=== PATIENT | female | born 1955 | race Caucasian/White ===

== ENCOUNTER 2021-02-15 08:10 | Emergency (ER) | payer MEDICARE, SELFPAY ==
--- NOTE | ~2021-02-15 | CT_ITS ---
EXAMINATION: CT abdomen pelvis wo con DATE: 02/15/2021 11:46 INDICATION: Left flank pain. TECHNIQUE: Computed tomography (CT) of the abdomen and pelvis was performed without intravenous contr ast. Automated exposure control and iterative reconstruction technique were employed. The dose-length product was 335.88 mGy-cm. COMPARISON: Chest CT 07/28/2017 FINDINGS: The visualized portions of the lung bases demonstrates perilymphatic nodules involving all lobes. There is chronic airspace opacities in the perihilar regions with air bronchograms. No pleural effusion. The heart size is normal. There are coronary artery calcifications. No pericardial effusio n. Calcified left hilar lymph nodes are consistent with old granulomatous disease. There are bilatera l breast implants with intracapsular ruptures. The liver, gallbladder, spleen, pancreas, and adrenal glands are normal. There is a small parenchymal calcification in right kidney. There is a 10 mm cyst in left kidney. There is diverticulosis of the colon without evidence of diverticulitis. There are no dilated loops of bowel. The appendix is normal. There are no pathologically enlarged lymph nodes. Th ere is no free intraperitoneal fluid. There are foci of subcutaneous gas in left flank. There is mode rate thoracic spondylosis and mild lumbar spondylosis. IMPRESSION: 1. Foci of subcutaneous gas in left flank, most likely from injection or other trauma. 2. Diffuse lung disease similar to the prior exam, most likely sarcoid. Reviewed, dictated and finalized at location A. T BAND SEPARATOR
--- NOTE | ~2021-02-15 | XR_ITS ---
EXAMINATION: XR ribs LT 2V w CXR 2V DATE: 02/15/2021 11:29 INDICATION: Left flank pain. TECHNIQUE: Frontal and lateral views of the chest and 2 views on 3 radiographs of the left ribs were obtained. COMPARISON: Chest 2 views 07/19/2017, 01/03/2011, chest CT 07/28/2017 FINDINGS: CHEST TWO VIEWS: There is chronic mild elevation of right hemidiaphragm. There are chronic airspace o pacities in all lung zones bilaterally with a perihilar predominance. No pleural effusion or pneumoth orax. The heart size is normal. Breast implants are noted. LEFT RIBS: There is no rib fracture. IMPRESSION: 1. No rib fracture. 2. Stable diffuse lung disease, most likely sarcoid. Reviewed, dictated and finalized at location A. LESOFT FINANCIAL DEVELOPER
[2021-02-15 08:21] VITALS: BP 140/77; PULSE 95; RESP 18; TEMP 36.6; O2SAT 100
--- NOTE | 2021-02-15 11:03 | ED.ABDPAIN ---
HPI - Abdominal Pain General Chief Complaint: Abdominal Pain Stated Complaint: Possible Kidney Stone Time Seen by Provider: 02/15/21 10:51 Source: patient Mode of arrival: ambulatory Limitations: no limitations History of Present Illness HPI narrative: This is a 65-year-old female that presents to the emergency department for left-sided flank pain present over the last couple of weeks. No known injury or trauma. Patient saw her primary for this, who tried to order a CT scan to rule out kidney stone. She was instructed to present to the emergency department for any worsening pain. Reports the pain has been constant. It is worse with movement. She does report sometimes the pain radiates into her abdomen. She has had some urinary frequency. She did take a muscle relaxer this morning with some relief. Denies fever, vomiting, dysuria, or hematuria. Related Data Allergies Allergy/AdvReac Type Severity Reaction Status Date / Time No Known Allergies Allergy Mild Verified 02/14/21 08:45 Review of Systems Review of Systems: CONSTITUTIONAL: Denies fever GASTROINTESTINAL: Reports abdominal pain. Denies nausea, vomiting GENITOURINARY: Denies dysuria or hematuria. SKIN: Denies rash MUSCULOSKELETAL: Reports back pain, joint pain, and myalgia. All systems reviewed & are unremarkable except as noted in HPI and below PMFSH Past Medical History Medical History Colon cancer screening History of one miscarriage History of vaginal delivery x 4 HTN (hypertension) Hx of sarcoidosis Surgical History Surgical History History of breast augmentation History of dilation and curettage History of endometrial ablation Family History Family History Father Diabetes mellitus Hypertension Heart disease Mother Bladder cancer Sibling Bone cancer Hypertension Heart disease Social History Social History Smoking status: Never smoker Second hand tobacco smoke exposure: No Alcohol intake: current Substance use: never Gender identity (if verbalized by the patient): Female Sexual Orientation (if Verbalized by the Patient): Straight or Heterosexual Agree to blood products: Yes Exam Narrative: GENERAL: Well-appearing, well-nourished, and in no acute distress. HEAD: Normocephalic, atraumatic. EYES: EOMI. CHEST: Clear to auscultation. No respiratory distress. No wheezes rales or rhonchi HEART: Regular rate and rhythm. No murmur heard. Normal peripheral pulses. ABDOMEN: Soft, nontender, nondistended, normal active bowel sounds. No CVA tenderness BACK: No midline spinal tenderness. There is mild bruising noted to the left flank area EXTREMITIES: Normal range of motion. No edema. SKIN: Warm, dry, no rash. NEURO: No focal deficits. Alert and oriented x3. PSYCH: Normal mood and affect Course Vital Signs Vital signs: Vital Signs Temperature 97.8 F 02/15/21 08:21 Pulse Rate 95 02/15/21 08:21 Respiratory Rate 18 02/15/21 08:21 Blood Pressure 140/77 02/15/21 08:21 Pulse Oximetry 100 02/15/21 08:21 Temperature 97.8 F 02/15/21 08:21 Pulse Rate 95 02/15/21 08:21 Respiratory Rate 18 02/15/21 08:21 Blood Pressure 140/77 02/15/21 08:21 Pulse Oximetry 100 02/15/21 08:21 MDM - Abdominal Pain MDM Narrative Medical decision making narrative: Patient presents to the ER for left sided flank pain present over the last couple of weeks. No recent injury or trauma. Her vitals are stable. She is afebrile and nontoxic-appearing. CBC metabolic panel without concerning findings. Lipase is normal. UA without evidence of infection. Left rib/chest x-ray shows stable diffuse lung disease consistent with her known diagnosis of sarcoidosis. CT scan of the abdomen and pelvis shows a
[2021-02-15 11:14] LABS: Basophils Absolute Auto 0.1 K/mm3 (0.0-0.1); Basophils Percent Auto 1.4 % (0.2-1.2); Eosinophils Absolute Auto 0.4 K/mm3 (0-0.3); Eosinophils Percent Auto 8.7 % (0-4.4); Hematocrit 44.8 % (37.0-47.0); Hemoglobin 14.6 g/dL (12.0-15.0); Immature Granulocyte Absolute 0.01 K/mm3 (0.00-0.031); Immature Granulocyte Percent A 0.2 % (0-0.5); Lymphocytes Absolute Auto 1.59 K/mm3 (0.9-3.2); Lymphocytes Percent Auto 32.1 % (18.3-44.2); Mean Corpuscular HGB Conc 32.6 g/dl (32-36); Mean Corpuscular Hemoglobin 31.8 pg (26-34); Mean Corpuscular Volume 97.6 fl (80-100); Mean Platelet Volume 9.2 fl (7.4-10.4); Monocytes Absolute Auto 0.4 K/mm3 (0.1-0.6); Monocytes Percent Auto 8.9 % (2.6-8.5); Neutrophils Absolute Auto 2.4 K/mm3 (1.3-6.7); Neutrophils Percent Auto 48.7 % (45.5-73.1); Platelet Count Result 281 k/mm3 (150-375); Red Blood Count 4.59 M/mm3 (4.2-5.4); Red Cell Distribution Width 13.2 % (11.5-14.5)
[2021-02-15 11:19] LABS: Add Urine Microscopic? YES; Appearance Urine Clear (Clear); Bacteria Urine Trace /hpf; Bilirubin Urine Negative (Negative); Blood Urine 1+ (Negative); Color Urine Colorless (Yellow); Glucose Urine UA Negative (Negative); Ketones Urine Negative (Negative); Leukocyte Esterase Ur Negative LEU/UL (Negative); Nitrate Urine Negative (Negative); Protein Urine Negative (Negative); RBC Urine 0-2 /hpf (0-2); Urobilinogen Urine Negative mg/dL (<2.0); WBC Urine 0-3 /hpf
[2021-02-15 11:20] LABS: Specific Grav Ur 1.003 (1.001-1.035)
[2021-02-15 11:27] LABS: Alanine Aminotransferase 26 U/L (4-35); Albumin Level 4.6 g/dL (3.5-5.1); Alkaline Phosphatase 125 U/L (38-126); Anion Gap 8 mmol/L (8-16); Aspartate Amino Transferase 32 U/L (14-36); Bilirubin,Total 0.6 mg/dL (0.2-1.3); Blood Urea Nitrogen 19 mg/dL (7-17); Calcium 9.7 mg/dL (8.4-10.2); Carbon Dioxide 29 mmol/L (22-30); Chloride 101 mmol/L (98-107); Estimated CRCL calculation 59 ml/min; Estimated Glomerular Filt Rate > 60; Glucose 92 mg/dL (65-110); Lipase 115 U/L (23-300); Potassium 4.1 mmol/L (3.4-5.0); Sodium 138 mmol/L (137-145)
[2021-02-15 12:46] LABS: Creatine Kinase 54 U/L (30-135)
[2021-02-15 13:40] VITALS: BP 135/68; PULSE 90; RESP 18; O2SAT 100
== END 2021-02-15 13:41 | disposition home or self-care (01) ==
PROVIDERS: Physician Assistant; Emergency Provider Emergency Medicine; PCP Internal Medicine
DX: M54.6 Pain in thoracic spine (principal); I10 Essential (primary) hypertension
CPT/HCPCS: 36415; 71046; 71100; 74176; 80053; 81001; 82550; 83690; 85025; 99284

== ENCOUNTER → 2021-04-19 07:52 | Outpatient (CLI) | payer MEDICARE, SELFPAY ==
--- NOTE | ~2021-04-19 | MM_ITS ---
EXAMINATION: MM scrn bia implant BI w jean HISTORY: Screening mammogram TECHNIQUE: Craniocaudal and mediolateral oblique 3-D tomosynthesis images with implant displacement a nd synthetic 2-D images were generated. Craniocaudal and mediolateral oblique views of the breasts wi thout implant displacement were obtained using full field digital mammography. CAD analysis was submi tted and interpreted. COMPARISON: 01/28/2016 bilateral implant screening mammogram BREAST PARENCHYMAL COMPOSITION: There are scattered areas of fibroglandular density. FINDINGS: Status post bilateral augmentation mammoplasty. There is extravasated silicone in the lower aspect of the implant on the left, stable in appearance s jesse 01/28/2016. There is no evidence of suspicious mass, calcification, or architectural distortion to suggest malignancy in either breast. There has been no suspicious interval change. IMPRESSION: 1. No mammographic evidence of malignancy. 2. Recommend routine screening mammography in one year. BI-RADS Category 2: Benign finding(s). Reviewed, dictated and finalized at location A. TANK ASSEMBLER
== END ==
PROVIDERS: PCP Internal Medicine; Visit Provider Nurse Practitioner
DX: Z12.31 Encounter for screening mammogram for malignant neoplasm of breast (principal)
CPT/HCPCS: 77063; 77067

== ENCOUNTER → 2021-04-22 11:44 | Outpatient (CLI) | payer MEDICARE, SELFPAY ==
--- NOTE | ~2021-04-22 | DEXA_ITS ---
Bone Density Report Name: FORTINO ESTRADA Age: 65 Sex: Female Ethnicity: White Date of : 1955 Indication: osteopenia; postmenopausal Referring Provider: Ruben, Nany Study: Bone densitometry was performed. Exam Date: April 22, 2021 Accession number: [id number] Bone Density: Region BMD T-score Z-score Classification AP Spine (L1-L4) 0.830 -2.0 -0.1 Osteopenia Femoral Neck (Left) 0.744 -0.9 0.7 Normal Total Hip (Left) 0.835 -0.9 0.4 Normal Femoral Neck (Right) 0.713 -1.2 0.4 Osteopenia Total Hip (Right) 0.859 -0.7 0.6 Normal Total Hip Mean 0.847 -0.8 0.5 Normal World Health Organization criteria for BMD impression classify patients as: Normal (T-score at or above -1.0), Osteopenia (T-score between -1.0 and -2.5), or Osteoporosis (T-score at or below -2.5). 10-year Fracture Risk(1): Major Osteoporotic Fracture 8.7% Hip Fracture 0.8% Reported Risk Factors: [place] (), Neck BMD=0.713, BMI=27.7 (1) FRAX(R) Version 3.08. Fracture probability calculated for an untreated patient. Fracture probability may be lower if the patient has received treatment. Previous Exams: Region Exam Age BMD T-score BMD Change BMD Change Date g/cm2 vs Baseline vs Previous AP Spine(L1-L4) 04/22/2021 65 0.830 -2.0 0.038* 0.038* 01/14/2016 60 0.793 -2.3 Total Hip(Left) 04/22/2021 65 0.835 -0.9 -0.061* -0.061* 01/14/2016 60 0.896 -0.4 Total Hip(Right) 04/22/2021 65 0.859 -0.7 -0.041* -0.041* 01/14/2016 60 0.900 -0.3 *Denotes significance at 95% confidence level, LSC for AP Spine = 0.022 g/cm2, LSC for Total Hip = 0.027 g/cm2 Clinical Information Provided by Patient: Has used the following medications: Vitamin D Patient maximum height was 63.5 Menopause Age: 57 Does not regularly consume dairy products Drinks caffeinated beverages Onset of menses at age 14 Number of children 4 Impression: The patient has low bone mass, based on the Total Spine T-score. The patient has an estimated ten-year risk of hip fracture of 0.8% and an estimated ten-year risk of major fracture of 8.7%, based on the WHO FRAX algorithm. The BMD for the Total Hip(Left) decreased, changing by -0.061 since the last DXA exam. The BMD for the Total Hip(Right) decreased, changing by -0.041 since the last DXA exam. Discussion: BONE DENSITY IS LOW AT ONE OR MORE SKELETAL SITES. This patient's lowest
== END ==
PROVIDERS: Visit Provider Nurse Practitioner
DX: Z78.0 Asymptomatic menopausal state (principal); Z13.820 Encounter for screening for osteoporosis; M85.88 Other specified disorders of bone density and structure, other site; M85.851 Other specified disorders of bone density and structure, right thigh
CPT/HCPCS: 77080

== ENCOUNTER 2022-06-16 10:50 | Outpatient (CLI) | payer MEDICARE, SELFPAY ==
--- NOTE | 2022-06-19 12:27 | WPDHOLTEREM ---
Holter/Event Monitor Holter/Event Monitor Date of procedure: 06/16/22 Holter/Event Procedure: 48 Hr Holter Monitor Indications: Palpitations Conclusion: 1. 48 hour holter monitor on 06/16/22. 2. Underlying rhythm is sinus rhythm. HR range 54-143 bpm; average HR 82 bpm. 3. There are 21 premature supraventricular complexes. No supraventricular tachycardia. 4. There are 1,849 premature ventricular complexes. No ventricular tachycardia. 5. No sinoatrial or atrioventricular blocks. No significant pauses greater than 2 seconds. 6. No symptoms available for correlation.
== END 2022-06-16 10:51 | disposition home or self-care (01) ==
PROVIDERS: PCP Internal Medicine; Visit Provider Internal Medicine
DX: R00.2 Palpitations (principal)
CPT/HCPCS: 93225; 93226

== ENCOUNTER 2022-06-25 08:40 | Outpatient (CLI) | payer MEDICARE, SELFPAY ==
--- NOTE | 2022-06-25 08:50 | ECHO_ITS ---
Patient Info Name: Farzaneh Ennis Age: 67 years : 1955 Gender: Female Ht: 63 in Wt: 148 lbs BSA: 1.74 m2 HR: 70 bpm BP: 107 / 75 mmHg Heart Rhythm: Sinus Rhythm Technical Quality: Good Exam Date: 06/25/2022 9:01 AM Exam Location: [facility] Patient Status: Outpatient Admit Date: 06/25/2022 Staff Ordering Physician: Negro Olvera DO Gusset Maker: Keeley North RDCS Attending Provider: Negro Olvera DO Referring Physician: May LOCK; Exam Type: CA echo doppler color flow Study Info Indications R00.2 - Palpitations Complete two-dimensional, color flow and Doppler transthoracic echocardiogram is performed. Summary 1. Complete two-dimensional, color flow and Doppler transthoracic echocardiogram is performed. 2. Left ventricular chamber dimension is normal. 3. Left ventricular systolic function is normal, estimated at 60-65%. 4. The left ventricular diastolic function is grade I diastolic dysfunction. 5. E/e' 9 is minimally elevated. 6. The mitral valve has mildly calcified annulus. 7. There is trace tricuspid valve regurgitation. 8. No pulmonary hypertension, estimated pulmonary arterial systolic pressure is 20 mmHg. 9. There is trace pulmonic regurgitation. Left Ventricle E/e' 9 is minimally elevated. Left ventricular chamber dimension is normal. Left ventricular systolic function is normal, estimated at 60-65%. The left ventricular diastolic function is grade I diastolic dysfunction. Right Ventricle Right ventricular chamber dimension is normal. Right ventricular systolic function is normal. Left Atria Left atrial chamber dimension is normal. Right Atria Right atrial chamber dimension is normal. Aortic Valve The aortic valve is trileaflet. There is no aortic valve stenosis. There is no aortic valve regurgitation. Pulmonic Valve There is trace pulmonic regurgitation. Mitral Valve The mitral valve has mildly calcified annulus. There is no mitral valve stenosis. There is no mitral valve regurgitation. Tricuspid Valve There is trace tricuspid valve regurgitation. No pulmonary hypertension, estimated pulmonary arterial systolic pressure is 20 mmHg. Pericardium/Pleural There is no pericardial effusion. Inferior Vena Cava Normal inferior vena cava with >50% collapse upon inspiration consistent with normal right atrial pressure, 5 mmHg. Aorta The aortic root size at the sinus of Valsalva is normal. Left Ventricular Outflow Tract Name Value Normal LVOT 2D LVOT Diameter 1.8 cm LVOT Doppler LVOT Peak Gradient 3 mmHg LVOT Mean Gradient 1 mmHg LVOT VTI 19 cm LVOT VTI/AV VTI Ratio 0.8 LVOT Stroke Volume 52 ml LVOT CO 2.8 l/min LVOT CI 1.6 l/min/m2 Pulmonic Valve Name Value Normal RVOT Doppler
== END 2022-06-25 08:41 | disposition home or self-care (01) ==
PROVIDERS: PCP Internal Medicine; Visit Provider Internal Medicine
DX: R00.2 Palpitations (principal); I34.81 Nonrheumatic mitral (valve) annulus calcification; I51.89 Other ill-defined heart diseases
CPT/HCPCS: 93306

== ENCOUNTER 2023-10-15 10:23 | Outpatient (CLI) | payer MEDICARE, SELFPAY ==
--- NOTE | ~2023-10-15 | DEXA_ITS ---
Bone Density Report Name: FORTINO ESTRADA Age: 68 Sex: Female Ethnicity: White Date of : 1955 Indication: postmenopausal; screening for osteoporosis; height loss; Referring Provider: PATRICK, MISSY Study: Bone densitometry was performed. Exam Date: October 15, 2023 Accession number: [id number] Bone Density: Region BMD T-score Z-score Classification AP Spine(L1-L4) 0.780 -2.4 -0.4 Osteopenia Femoral Neck (Left) 0.671 -1.6 0.2 Osteopenia Total Hip (Left) 0.816 -1.0 0.4 Normal Femoral Neck (Right) 0.682 -1.5 0.3 Osteopenia Total Hip (Right) 0.908 -0.3 1.2 Normal Total Hip Mean 0.862 -0.7 0.8 Normal World Health Organization criteria for BMD impression classify patients as: Normal (T-score at or above -1.0), Osteopenia (T-score between -1.0 and -2.5), or Osteoporosis (T-score at or below -2.5). 10-year Fracture Risk(1): Major Osteoporotic Fracture 10% Hip Fracture 1.5% Reported Risk Factors: [place] (), Neck BMD=0.671, BMI=25.7 (1) FRAX(R) Version 3.08. Fracture probability calculated for an untreated patient. Fracture probability may be lower if the patient has received treatment. Clinical Information Provided by Patient: Patient maximum height was 64 Does not regularly consume dairy products Drinks caffeinated beverages Onset of menses at age 14 Number of children 4 Impression: The patient has low bone mass, based on the Total Spine T-score. The patient has an estimated ten-year risk of hip fracture of 1.5% and an estimated ten-year risk of major fracture of 10%, based on the WHO FRAX algorithm. Discussion: BONE DENSITY IS LOW AT ONE OR MORE SKELETAL SITES. This patient's lowest T-score is low at one or more skeletal sites. It meets the World Health Organization's (WHO) criteria for ?low bone mass? (T-score between -1.0 and -2.5). The patient's 10-year risk of fracture as calculated by FRAX is less than the threshold where pharmacological therapy is recommended by the National Osteoporosis Foundation (NOF). However, all treatment decisions require clinical judgment and consideration of individual patient factors, including patient preferences, comorbidities, previous drug use, risk factors not captured in the FRAX model (e.g., frailty, falls, vitamin D deficiency, increased bone turnover, interval significant decline in bone density) and possible under or overestimation of fracture risk by FRAX. The patient should follow a healthful lifestyle (good nutrition with adequate calcium and vitamin D, and appropriate weight-bearing exercise). Follow-Up: Consider repeating this study in 2 to 3 years to reassess this patient's status, or sooner if there is some new clinical indication. Reported by: ARI on 10/15/2023 11:04:00 AM.
== END 2023-10-15 10:24 | disposition home or self-care (01) ==
PROVIDERS: PCP Internal Medicine; Visit Provider Nurse Practitioner
DX: M85.89 Other specified disorders of bone density and structure, multiple sites (principal); Z13.820 Encounter for screening for osteoporosis
CPT/HCPCS: 77080

== ENCOUNTER 2023-10-20 08:28 | Outpatient (CLI) | payer OTHER, SELFPAY ==
--- NOTE | 2023-10-20 08:41 | ECG_ITS ---
Test Date: 2023-10-20 08:55:58 Measurements Intervals Anderson Rate: 82 P: 27 FL: 177 QRS: -24 QRSD: 92 T: 47 QT: 354 QTc: 415 Interpretive Statements SINUS RHYTHM MINIMAL VOLTAGE CRITERIA FOR LVH, CONSIDER NORMAL VARIANT [MEETS CRITERIA IN ONE OF: R(aVL), S(V1), R(V5), R(V5/V6)+S(V1)] POSSIBLE ANTERIOR MYOCARDIAL INFARCTION [30 ms Q WAVE IN V3/V4, OR R < 0.2 mV IN V4], OF INDETERMINATE AGE WARNING: DATA QUALITY MAY AFFECT INTERPRETATION No previous ECG available for comparison Electronically Signed On 10-20-2023 16:17:35 CDT by Emily Ibarra M.D.
[2023-10-20 09:18] LABS: Anion Gap 13 mmol/L (4-12); Blood Urea Nitrogen 13 mg/dL (7-17); Calcium 9.6 mg/dL (8.4-10.2); Carbon Dioxide 24 mmol/L (22-30); Chloride 101 mmol/L (98-107); Estimated Glomerular Filt Rate > 60; Glucose 102 mg/dL (65-110); Potassium 4.3 mmol/L (3.4-5.0); Sodium 138 mmol/L (137-145)
== END 2023-10-20 08:29 | disposition home or self-care (01) ==
PROVIDERS: Anesthesiology; PCP Internal Medicine; Visit Provider Surgery Plastic and Reconstructive Surgery
DX: I10 Essential (primary) hypertension (principal); Z79.899 Other long term (current) drug therapy; Z01.818 Encounter for other preprocedural examination
CPT/HCPCS: 36415; 80048; 93005

== ENCOUNTER 2023-10-22 00:39 | Day surgery (SDC) | payer OTHER, SELFPAY ==
[2023-10-19 09:57] VITALS: BMI 25.0
--- NOTE | 2023-10-19 10:21 | PC.NURSE ---
Report to the Outpatient Waiting Room, entrance under the green pavilion located off [facility], at time __0800am on date ____10/22/23___. Planned Procedure Time: ___1000am . Time changes happen often and if your time is changed the preop area will call you the afternoon before. - You and your visitor will be asked to self-screen and do not enter if you have any COVID symptoms. - A mask is optional within the hospital at this time. Patients may have clear liquids (water, carbonated beverages, clear teas, apple juice) until 3 hours prior to surgery (0700am) with a maximum of 20 ounces. - No food from midnight until time of surgery Take the following medications with a SIP of water the morning of surgery: __None DO NOT STOP ANY OF YOUR OTHER PRESCRIPTION MEDICATIONS PRIOR TO SURGERY ?EXCEPT THE FOLLOWING Medications to discontinue per physician None Date to take last dose n/a Please no make-up, nail hong konger, hairspray, perfume, deodorant, or body powder the day of surgery. No jewelry (including any body piercings) or valuables the day of surgery, leave them at home. Please take a shower or bath the night before, or the morning of, surgery with an antibacterial soap. Wear comfortable, loose fitting clothing. Children are encouraged to wear pajamas. - Jewelry must be removed prior to entering the operating room. Rings and piercings that are not removed may be cut off. - The hospital will not accept responsibility for valuables. - Please leave all valuables, including medications, at home the day of surgery. If you are going home after surgery, a licensed mule driver must drive you home. - NO public transportation without another adult if you receive anesthesia. - We recommend that an adult stay with you for 24 hours following discharge. - We also recommend that you do not drive, make important decision, drink alcoholic beverages, or take any drugs that were not prescribed by your health care provider for at least 24 hours after your discharge time. Follow any additional instructions given to you from your surgeon. If you or anyone in your household have experienced Covid symptoms in the past week, please notify your surgeon or the nurse liaison at the phone number below for possible testing. Telephone instructions given to __patient and asked if any additional questions and then verbalized understanding. Patient advised to call surgeon office or pre surgery nurse liaison [phone] if any additional questions.
[2023-10-22] VITALS (8 sets, daily range): BP systolic 134–150; BP diastolic 75–91; PULSE 84–87; RESP 14–16; TEMP 36.1–36.7; O2SAT 98–100; BMI 25.4
--- NOTE | 2023-10-22 09:25 | WPDHPUPDATE1 ---
History and Physical Update Update Date/Time: 10/22/23 09:25 History and Physical has been reviewed, including an updated exam of the patient. There are NO changes in the patient's condition. Risks, benefits, and alternatives have been discussed and questions answered. Patient agrees to proceed with procedure.
[2023-10-22 09:35] LABS: Urine Cotinine NEGATIVE
[2023-10-22] MEDS: LACTATED RINGERS 1,000 ML 30 ML IV CONT ×2 (09:45→12:35)
--- NOTE | 2023-10-22 09:45 | P.OP_ITS ---
Procedure Note - Detailed Date of Procedure 10/22/23 Pre-op Diagnosis hx breast augmentation Post-op Diagnosis Same Procedure Performed Bilateral breast implant removal Bilateral breast mastopexy Surgeon Reymundo Huang MD Anesthesia General Findings Inverted T Superior pedicel Previous implant: Bilateral ruptured smooth silicone. Left capsule with significant thickening. Description of Procedure She is here today for bilateral breast implant removal with mastopexy. Previously and again today the risks, benefits, alternatives were discussed in extensive detail. I wanted her to be very realistic about the risks involved as well as expectations. We discussed aftercare and what to monitor for. Made sure answered all of her questions to her satisfaction today and consent was obtained. Marked in the preoperative holding area with their verification. The patient was taken to the operating room placed supine on the operating table. Anesthesia was provided by anesthesiology. A surgical time-out was taken. She was prepped and draped in a standard sterile fashion. 11 blade used to make a stab incision and the lateral breast was infiltrated with a tumescent solution (avoiding central breast). Tegaderm nipple Duncan were placed. A 15 blade used to make an incision at the previous IMF scar. Dissection was continued until the previous implant was identified and removed with capsulotomy. Capsules sent to pathology. Findings as above. I then copiously irrigated with saline solution on TUR tubing and verified a strict hemostasis. I tailor tacked the breast into position. Placed her in a sitting position. Suction lipectomy was completed laterally with a 3mm Jackie cannula based on preoperative planning, intraoperative observation, and rolling pinch test. I elevated medial and lateral tissue flaps as well for planned closure. I closed along the IMF with 2-0 Stratafix. Along the vertical with 2-0 PDS. 3- 0 Monocryl along the vertical and around the areola. 3-0 Stratafix along the IMF. I finally closed everything with running subcuticular 4-0 Monocryl and tissue glue. Fluffs and surgical bra were placed. Estimated Blood Loss 75 Drains No Packing No Pathology Yes (Bilateral breast capsules) Complications No immediate complications Condition Stable Disposition PACU
--- NOTE | 2023-10-22 09:51 | P.PNAN_ITS ---
Anes - Initial Pre Proc Eval Procedure: Operation Date: 10/22/23 11:00 Proposed Procedures p Bilateral Breast Implant Removal - Reymundo Huang MD s Bilateral Breast Mastopexy - Reymundo Huang MD Date/Time: 10/22/23 09:51 Surgeon: Reymundo Huang MD Pre Op Diagnosis: hx breast augmentation Patient Data Age: 68 Gender: F Height: 1.6 m Weight: 64 kg Allergies Allergy/AdvReac Type Severity Reaction Status Date / Time No Known Allergies Allergy Mild Verified 10/19/23 09:55 Home Medications Medication Instructions Recorded Confirmed Type lisinopril 20 1 tablet PO DAILY #90 tabs 04/26/23 10/19/23 Rx mg-hydrochlorothiazide 12.5 mg tablet Laboratory Tests 10/22/23 09:13 Cotinine Negative Patient hx anesthesia problems: none Family hx anesthesia problems: none Results Review: All pre-operative results and documents have been reviewed as part of the pre- operative evaluation. [facility] Past Medical History Medical History (Updated 06/14/23 @ 13:57 by Joseph Garcia DO) Colon cancer screening Hemorrhoidal skin tags History of one miscarriage History of vaginal delivery x 4 HTN (hypertension) Hx of sarcoidosis Surgical History Surgical History History of breast augmentation History of dilation and curettage History of endometrial ablation Family History Family History Father Diabetes mellitus Hypertension Heart disease Mother Bladder cancer Sibling Bone cancer Hypertension Heart disease Social History Social History Smoking status: Never smoker Second hand tobacco smoke exposure: No Alcohol intake: current Drinks per week: 1 Substance use: never Lack of Transportation: No Lack of Food: Never True Current Housing: I Have Housing Concerned About Future Housing: No Difficulty Paying Gas/Electric Bills: No Difficulty Paying for Meds: No Currently Unemployed: No Education: Trade/Vocational Certificate Difficulty w/ Childcare or Family Care: No Living arrangements: with family Additional living arrangements comments: and son Gender identity (if verbalized by the patient): Female Sexual Orientation (if Verbalized by the Patient): Straight or Heterosexual Spiritual care concerns: No Agree to blood products: Yes Anes - Eval Final PreProcedure Day of Procedure 10/22/23 09:51 Patient weight: normal Heart: regular rate and rhythm Lungs: clear to auscultation Airway: Mallampati scale class II Neurological: alert and oriented Last oral intake: >/= 8 hours ASA classification: III Emergent: no Anesthetic plan: proceed Anesthesia type and monitoring: general ETT and standard monitoring Results Review: All pre-operative results and documents have been reviewed as part of the pre- operative evaluation. Informed Consent: The patient's anesthetic plan and its attendant risks and benefits were discussed with the patient/family/POA. Questions were solicited and answers provided to the satisfaction of the patient/family/POA.
[2023-10-22] MEDS: TRANEXAMIC ACID 1,000MG/ISO100 1,000 MG/100 ML BAG 200 MG IVPB (10:01)
[2023-10-22] MEDS: ceFAZolin 2 GM/D5W 50 ML 2 GM/50 ML BAG IVPB (10:18)
[2023-10-22] MEDS: LACTATED RINGERS IRRIG 1,000 ML, LIDOCAINE HCL 1% LOCAL INJ 50 ML, EPINEPHrine HCL INJ ... INFILTRATE (10:29)
--- NOTE | 2023-10-22 12:57 | SUR.PHASEI ---
1255: Simple mask removed.
[2023-10-22] MEDS: oxyCODONE HCL (*CRX) 5 MG TAB IR PO (13:26)
== END 2023-10-22 14:14 | disposition home or self-care (01) ==
PROVIDERS: PCP Internal Medicine; Visit Provider Surgery Plastic and Reconstructive Surgery
PROC: (CPT 19316; principal; 2023-10-22 11:00)
PROC: (CPT 19316; 2023-10-22 11:00)
DX: T85.43XA Leakage of breast prosthesis and implant, initial encounter (principal); N60.32 Fibrosclerosis of left breast; N60.31 Fibrosclerosis of right breast
CPT/HCPCS: 19316; 19371; 80307; 88304; A9270; J0171; J0690; J1100; J1170; J2250; J2371; J2405; J2704; J3010; J7120

== ENCOUNTER 2024-05-10 11:04 | Outpatient (CLI) | payer MEDICARE, SELFPAY ==
--- NOTE | ~2024-05-10 | US_ITS ---
EXAMINATION: US thyroid DATE: 05/10/2024 11:26 INDICATION: Nontoxic single thyroid nodule. TECHNIQUE: Multiple ultrasound images of the thyroid were obtained. COMPARISON: None. FINDINGS: The right thyroid lobe measures 5.6 x 2.1 x 2.0 cm. The left thyroid lobe measures 5.2 x 1.3 x 1.4 c m. In the left thyroid lobe, there is a 6 mm almost entirely cystic nodule (TI-RADS TR1). In the lef t thyroid lobe, there is a 3 mm and 2 mm nodules. In the right thyroid lobe, there is a 17 mm almost entirely cystic nodule (TR1). In the right thyroid lobe, there is a 7 mm mixed cystic and solid, hypo echoic, wider than tall nodule with smooth margin and punctate echogenic foci (TR4). IMPRESSION: 1. Thyroid nodules, likely not clinically significant. No follow-up is needed. Reviewed, dictated and finalized at location B.
== END 2024-05-10 11:05 | disposition home or self-care (01) ==
LOC: MICIMG 11:06
PROVIDERS: PCP Internal Medicine; Visit Provider Nurse Practitioner
DX: E04.2 Nontoxic multinodular goiter (principal)
CPT/HCPCS: 76536

== ENCOUNTER 2024-05-25 09:25 | Outpatient (CLI) | payer MEDICARE, SELFPAY ==
--- NOTE | ~2024-05-25 | US_ITS ---
EXAMINATION: US aorta DATE: 05/25/2024 15:33 CDT INDICATION: Family history of ischemic heart disease TECHNIQUE: Grayscale, color Doppler, and pulsed Doppler images of the aorta and common iliac arteries were obtained. COMPARISON: None. FINDINGS: The proximal aorta measures 2.3 cm greatest sagittal dimension. The mid aorta measures 1.7 cm greates t sagittal dimension. The distal aorta measures 1.5 cm greatest sagittal dimension. The right common internal iliac artery measures 1 cm. The left common iliac artery measures 1.1 cm. IMPRESSION: 1. Normal caliber aorta without aneurysm. Reviewed, dictated and finalized at location A.
--- OUTSIDE RECORDS SUMMARY | 2024-05-25 10:03 | XMS_ITS | Encounter Summary ---
Author Organization [facility] Address [address] [place] [address] Phone Care Team Providers Care Antenna Rigger Name Role Phone Negro Olvera MD Primary Care Provider [phone] Adam Leigh MD Unavailable [phone] Reymundo Huang MD Unavailable [phone] Reymundo Huang MD Unavailable [phone] Joseph Garcia DO Primary Care Provider [phone] Encounter Details Date Type Department Care Team (Latest Contact Info) Description 06/25/2022 Orders Only [facility] Scanning, Provider Social History Tobacco Use Types Packs/Day Years Used Date Smoking Tobacco: Never Smokeless Tobacco: Never Comments Unknown Sex and Gender Information Value Date Recorded Sex Assigned at Not on file Legal Sex Female 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 Gender Identity Female 07/30/2021 3:18 PM CDT Sexual Orientation Not on file documented as of this encounter Plan of Treatment Not on file documented as of this encounter Procedures Procedure Name Priority Date/Time Associated Diagnosis Comments CARDIOLOGY DOCUMENT SCAN 06/25/2022 documented in this encounter Results * CARDIOLOGY DOCUMENT SCAN (06/25/2022) Anatomical Region Laterality Modality Other us Provider Scanning [facility] CARDIAC SERVICES PROCEDURES Final Result documented in this encounter Visit Diagnoses Not on filedocumented in this encounter Care Teams Antenna Rigger Relationship Specialty Start Date End Date Negro Olvera MD [address] [place] [address] PCP - General Internal Medicine 08/13/17 02/03/24 Joseph Garcia DO [address] [place] [address] PCP - General Internal Medicine 02/04/24 Adam Leigh MD [address] [facility] DIV IM PULMONARY AND CCM, [address] [place] [address] Referring Physician Pulmonary Disease 04/02/23 Reymundo Huang MD [address] [place] [address] Referring Physician Plastic Surgery 09/28/23 09/28/23 Reymundo Huang MD [address] [place] [address] Referring Physician Plastic Surgery 09/28/23 documented as of this encounter
--- OUTSIDE RECORDS SUMMARY | 2024-05-25 10:03 | XMS_ITS | Encounter Summary ---
Author Organization [facility] Address [address] [place] [address] Phone Care Team Providers Care Marine Biologist Name Role Phone Negro Olvera MD Primary Care Provider [phone] Adam Leigh MD Unavailable [phone] Reymundo Huang MD Unavailable [phone] Reymundo Huang MD Unavailable [phone] Joseph Garcia DO Primary Care Provider [phone] Encounter Details Date Type Department Care Team (Latest Contact Info) Description 06/16/2022 Orders Only [facility] Scanning, Provider Social History Tobacco Use Types Packs/Day Years Used Date Smoking Tobacco: Never Smokeless Tobacco: Never Comments Unknown Sex and Gender Information Value Date Recorded Sex Assigned at Not on file Legal Sex Female 2:17 PM SEAL MIXER Gender Identity Female 07/30/2021 3:18 PM CDT Sexual Orientation Not on file documented as of this encounter Plan of Treatment Not on file documented as of this encounter Procedures Procedure Name Priority Date/Time Associated Diagnosis Comments CARDIOLOGY DOCUMENT SCAN 06/16/2022 documented in this encounter Results * CARDIOLOGY DOCUMENT SCAN (06/16/2022) Anatomical Region Laterality Modality Other us Provider Scanning CV CARDIAC SERVICES PROCEDURES Final Result documented in this encounter Visit Diagnoses Not on filedocumented in this encounter Care Teams Marine Biologist Relationship Specialty Start Date End Date Negro Olvera MD [address] [place] [address] PCP - General Internal Medicine 08/13/17 02/03/24 Joseph Garcia DO [address] [place] [address] PCP - General Internal Medicine 02/04/24 Adam Leigh MD [address] [facility] DIV IM PULMONARY AND CCM, [address] [place] [address] Referring Physician Pulmonary Disease 04/02/23 Reymundo Huang MD [address] [place] [address] Referring Physician Plastic Surgery 09/28/23 09/28/23 Reymundo Huang MD [address] [place] [address] Referring Physician Plastic Surgery 09/28/23 documented as of this encounter
--- OUTSIDE RECORDS SUMMARY | 2024-05-25 10:03 | XMS_ITS | Encounter Summary ---
Author Organization [facility] Address [address] [place] [address] Care Team Providers Care Band Scroll Saw Operator Name Role Phone Unavailable Primary Care Provider Unavailabl e Encounter Details Date Type Department Care Team (Late st Contact Info) Description 05/23/2024 External Device Data [facility] ABSTRACTION Provider, Abstract NO ADDRESS ON FILE Social History Tobacco Use Types Packs/Day Years Used Date Smoking Tobacco: Never Assessed Comments Unknown Sex and Gender Information Value Date Recorded Sex Assigned at Not on file Legal Sex Female 10:18 AM CDT Gender Identity Not on file Sexual Orientation Not on file documented as of this encounter Plan of Treatment Not on file documented as of this encounter Visit Diagnoses Not on filedocumented in this encounter
--- OUTSIDE RECORDS SUMMARY | 2024-05-25 10:03 | XMS_ITS | Clinical Summary ---
Author Organization [facility] Address [address] [place] [address] Care Team Providers Care Pecan Cleaner Name Role Phone Adam Leigh MD Unavailable [phone] Reymundo Huang MD Unavailable [phone] Joseph Garcia DO Primary Care Provider [phone] Allergies No known active allergies Medications lisinopril-hydro CHLOROthiazide (PRINZIDE,ZESTOR ETIC) 20-12.5 mg per tabletIndication s:hypertension 07/15/2017 Acti ve folic acid (FOLVITE) 1 mg tablet Take 1 tablet (1 mg total) by mouth daily 90 tablet 3 04/07/2023 Active Active Problems Problem Noted Date Diagnosed Date Sarcoidosis 04/02/2023 Shortness of breath 02/02/2023 Chest x-ray abnormality Family History Medical History Relation Name Comments Diabetes Father Cancer Mother Relation Name Status Comments Father Mother Social History Tobacco Use Types Packs/Day Years Used Date Smoking Tobacco: Never Smokeless Tobacco: Never Comments Unknown Sex and Gender Information Value Date Recorded Sex Assigned at Not on file Legal Sex Female 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 MACHINE OPERATOR Gender Identity Female 07/30/2021 3:18 PM CDT Sexual Orientation Not on file Obstetrics History Last Filed Vital Signs Vital Sign Reading Time Taken Comments Blood Pressure 149/93 02/04/2024 2:50 PM DIE CUTTING MACHINE OPERATOR Pulse 83 02/04/2024 2:50 PM DIE CUTTING MACHINE OPERATOR Temperature 36.3 C (97.4 F) 02/04/2024 2:50 PM DIE CUTTING MACHINE OPERATOR Respiratory Rate 18 02/04/2024 2:50 PM DIE CUTTING MACHINE OPERATOR Oxygen Saturation 98% 02/04/2024 2:50 PM DIE CUTTING MACHINE OPERATOR Inhaled Oxygen Concentration - - Weight 65.3 kg (144 lb) 02/04/2024 2:50 PM DIE CUTTING MACHINE OPERATOR Height 162.6 cm (5' 4 ) 02/04/2024 2:50 PM DIE CUTTING MACHINE OPERATOR Body Mass Index 24.72 02/04/2024 2:50 PM DIE CUTTING MACHINE OPERATOR Plan of Treatment Health Maintenance Due Date Last Done Comments Colon Cancer Screening-Colonoscopy 1954 Depression Screening 1954 Fall Risk Assessment 1954 Hepatitis C Screening 1954 Osteoporosis Screening-Bone Density Scan 1954 DTaP/Tdap/Td Vaccine (1 - Tdap) 1965 Hepatitis B Screening 1972 Pneumococcal vaccine 65+ (1 of 2 - PCV) 1973 Zoster Vaccine (1 of 2) 2004 Well Visit 65+ 06/06/2019 Influenza Vaccine (#1) 2023 Breast Cancer Screening-Mammogram 09/09/2024 024, 09/10/2023 Insurance [facility] PPO AETNA MEDICARE AETNA MEDICARE Care Teams Pecan Cleaner Relationship Specialty Start Date End Date Joseph Garcia DO [address] [place] [address] PCP - General Internal Medicine 02/04/24 Adam Leigh MD [address] [facility] DIV IM PULMONARY AND CCM, [address] [place] [address] Referring Physician Pulmonary Disease 04/02/23 Reymundo Huang MD [address] [place] [address] Referring Physician Plastic Surgery 09/28/23
--- OUTSIDE RECORDS SUMMARY | 2024-05-25 10:03 | XMS_ITS | Encounter Summary ---
Author Organization [facility] Address [address] [place] [address] Phone Care Team Providers Care Research Scientist Name Role Phone Negro Olvera MD Primary Care Provider [phone] Adam Leigh MD Unavailable [phone] Reymundo Huang MD Unavailable Reymundo Huang MD Unavailable [phone] Joseph Garcia DO Primary Care Provider [phone] Encounter Details Date Type Department Care Team (Latest Contact Info) Description 05/10/2023 Orders Only [facility] Scanning, Provider Social History Tobacco Use Types Packs/Day Years Used Date Smoking Tobacco: Never Smokeless Tobacco: Never Comments Unknown Sex and Gender Information Value Date Recorded Sex Assigned at Not on file Legal Sex Female 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 STYLIST Gender Identity Female 07/30/2021 3:18 PM CDT Sexual Orientation Not on file documented as of this encounter Plan of Treatment Not on file documented as of this encounter Procedures Procedure Name Priority Date/Time Associated Diagnosis Comments SCAN - LABS 05/10/2023 documented in this encounter Results * SCAN - LABS (05/10/2023) us Provider Scanning Final Result documented in this encounter Visit Diagnoses Not on filedocumented in this encounter Care Teams Research Scientist Relationship Specialty Start Date End Date Negro Olvera MD [address] [place] [address] PCP - General Internal Medicine 08/13/17 02/03/24 Joseph Garcia DO [address] [place] [address] PCP - General Internal Medicine 02/04/24 Adam Leigh MD [address] [facility] DIV IM PULMONARY AND CCM, [address] [place] [address] Referring Physician Pulmonary Disease 04/02/23 Reymundo Huang MD [address] [place] [address] Referring Physician Plastic Surgery 09/28/23 09/28/23 Reymundo Huang MD [address] [facility] [address] [place] [address] Referring Physician Plastic Surgery 09/28/23 documented as of this encounter
--- OUTSIDE RECORDS SUMMARY | 2024-05-25 10:03 | XMS_ITS | Referral Summary ---
Author Organization [facility] Address [address] [place] [address] Care Team Providers Care Spectrograph Operator Name Role Phone Adam Leigh MD Unavailable [phone] Reymundo Huang MD Unavailable Joseph Garcia DO Primary Care Provider [phone] Allergies No known active allergies Medications lisinopril-hydro CHLOROthiazide (PRINZIDE,ZESTOR ETIC) 20-12.5 mg per tabletIndication s:hypertension 07/15/2017 Acti ve folic acid (FOLVITE) 1 mg tablet Take 1 tablet (1 mg total) by mouth daily 90 tablet 3 04/07/2023 Active Active Problems Problem Noted Date Diagnosed Date Sarcoidosis 04/02/2023 Shortness of breath 02/02/2023 Chest x-ray abnormality Social History Tobacco Use Types Packs/Day Years Used Date Smoking Tobacco: Never Smokeless Tobacco: Never Comments Unknown Sex and Gender Information Value Date Recorded Sex Assigned at Not on file Legal Sex Female 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 TRUCK MECHANIC Gender Identity Female 07/30/2021 3:18 PM CDT Sexual Orientation Not on file Last Filed Vital Signs Vital Sign Reading Time Taken Comments Blood Pressure 149/93 02/04/2024 2:50 PM TRUCK MECHANIC Pulse 83 02/04/2024 2:50 PM TRUCK MECHANIC Temperature 36.3 C (97.4 F) 02/04/2024 2:50 PM TRUCK MECHANIC Respiratory Rate 18 02/04/2024 2:50 PM TRUCK MECHANIC Oxygen Saturation 98% 02/04/2024 2:50 PM TRUCK MECHANIC Inhaled Oxygen Concentration - - Weight 65.3 kg (144 lb) 02/04/2024 2:50 PM TRUCK MECHANIC Height 162.6 cm (5' 4 ) 02/04/2024 2:50 PM TRUCK MECHANIC Body Mass Index 24.72 02/04/2024 2:50 PM TRUCK MECHANIC Plan of Treatment Not on file Insurance [facility] [place] PPO TNA MEDICARE AETNA MEDICARE Care Teams Spectrograph Operator Relationship Specialty Start Date End Date Joseph Garcia DO [address] [place] [address] PCP - General Internal Medicine 02/04/24 Adam Leigh MD [address] [facility] IM PULMONARY AND CCM, [address] [place] [address] Referring Physician Pulmonary Disease 04/02/23 Reymundo Huang MD [address] [place] [address] Referring Physician Plastic Surgery 09/28/23
--- OUTSIDE RECORDS SUMMARY | 2024-05-25 10:03 | XMS_ITS | Clinical Summary ---
Author Organization [facility] Address [address] [place] [address] Care Team Providers Care Recruiting Specialist Name Role Phone Unavailable Primary Care Provider Unavailabl e Encounters Date Type Department Care Team Description 05/23/2024 External Device Data STL ABSTRACTION Provider, Abstract 05/23/2024 External Device Data STL ABSTRACTION Provider, Abstract 05/23/2024 External Device Data STL ABSTRACTION Provider, Abstract 05/17/2024 External Device Data STL ABSTRACTION Provider, Abstract 05/09/2024 External Device Data STL ABSTRACTION Provider, Abstract 05/09/2024 External Device Data STL ABSTRACTION Provider, Abstract 05/06/2024 External Device Data STL ABSTRACTION Provider, Abstract 05/05/2024 External Device Data STL ABSTRACTION Provider, Abstract 05/03/2024 External Device Data STL ABSTRACTION Provider, Abstract 04/19/2024 External Device Data STL ABSTRACTION Provider, Abstract 04/18/2024 External Device Data STL ABSTRACTION Provider, Abstract 03/22/2024 External Device Data STL ABSTRACTION Provider, Abstract 03/22/2024 External Device Data STL ABSTRACTION Provider, Abstract 03/15/2024 External Device Data STL ABSTRACTION Provider, Abstract 03/07/2024 External Device Data STL ABSTRACTION Provider, Abstract from Last 3 Months Social History Tobacco Use Types Packs/Day Years Used Date Smoking Tobacco: Never Assessed Comments Unknown Sex and Gender Information Value Date Recorded Sex Assigned at Not on file Legal Sex Female 10:18 AM CDT Gender Identity Not on file Sexual Orientation Not on file Plan of Treatment Health Maintenance Due Date Last Done Comments Pre-Diabetes and Diabetes Screening 1954 DTAP/TDAP/TD VACCINES (1 - Tdap) 1973 COLORECTAL SCREENING 06/06/1999 Colorectal Cancer Screening 06/06/1999 FIT-DNA Q 3 years 06/06/1999 FIT/FOBT Q 1 year 06/06/1999 Flex Sig/CT Colonography Q 5 years 06/06/1999 PNEUMOCOCCAL VACCINE 50+ YEARS (1 of 1 - PCV) 06/06/19 05 ZOSTER VACCINE (1 of 2) 2004 OSTEOPOROSIS SCREENING 06/06/2019 INFLUENZA VACCINE (#1) 2023 BREAST CANCER SCREENING 09/09/2024 09/10/2023 RSV VACCINE (60+ or ) (1 - 1-dose 75+ series) 2029 Procedures Procedure Name Priority Date/Time Associated Diagnosis Comments MAMMO 3D ALYSSIA SCREEN BILAT W OR WO CAD Routine 09/10/2023 10:07 AM CDT Visit for screening mammogram from Last 3 Months or Most Recently Relevant to Health Maintenance Results * MAMMO 3D ALYSSIA SCREEN BILAT W OR WO CAD (09/10/2023 10:07 AM CDT) Anatomical Region Laterality Modality Breast Bilateral Mammography 09/10/2023 10:1 4 AM CDT Impressions 09/14/2023 9:33 AM CDT IMPRESSION: NO MAMMOGRAPHIC EVIDENCE OF MALIGNANCY. OVERALL BIRADS CATEGORY:2 (benign findings). ROUTINE SCREENING MAMMOGRAPHY IS RECOMMENDED IN 12 MONTHS. A normal letter will be sent to patient. Narrative 09/14/2023 9:33 AM CDT EXAM: MAMMO 3D ALYSSIA SCREEN BILAT W OR WO CAD STUDY DATE: 09/10/2023 10:07 AM CLINICAL INDICATION: 68 years old female presents for routine screening mammography. COMPARISON: Prior mammogram dated 04/19/2021 PROCEDURE: CC and MLO standard and implant displaced digital mammographic views of the bilateral breasts are obtained. Computer Aided Detection (CAD) was utilized. Tomosynthesis was done with the implant displaced views. FINDINGS: Breast Density: Scattered fibroglandular densities. Right breast: There is a right subglandular breast implant. There are implants capsular calcifications. There are no spiculated masses, suspicious microcalcifications or areas of architectural distortion in the right breast. Left breast: There is a left subglandular breast implant. There is dense material inferior to the left breast implant, likely represents extravasated silicon material. There are no spiculated masses, suspicious microcalcifications or areas of architectural distortion in the left breast. Reymundo Huang MD MAMMO ORDERABLES Final Result from Last 3 Months or Most Recently Relevant to Health Maintenance Insurance A[employer]NA [facility]
== END 2024-05-25 09:26 | disposition home or self-care (01) ==
PROVIDERS: PCP Internal Medicine; Visit Provider Internal Medicine
DX: Z13.9 Encounter for screening, unspecified (principal); Z82.49 Family history of ischemic heart disease and other diseases of the circulatory system
CPT/HCPCS: 76775

== ENCOUNTER 2024-05-26 09:37 | Outpatient (CLI) | payer MEDICARE, SELFPAY ==
--- NOTE | ~2024-05-26 | XR_ITS ---
EXAMINATION: XR barium swallow modified DATE: 05/26/2024 10:03 INDICATION: Dysphagia, unspecified. TECHNIQUE: The patient was given barium-containing material of multiple consistencies to swallow by t caden speech pathologist while I performed fluoroscopy. Fluoroscopy exposure time was 0.8 minutes. The n umber of fluoroscopy images saved to the PACS was 1. Dose-area product was 0.476 Gy-cm^2. FINDINGS: The oral stage, pharyngeal stage, and cervical/esophageal stage of the swallow are normal. IMPRESSION: 1. Normal modified barium swallow. 2. Please refer to the speech therapy report for recommendations. Reviewed, dictated and finalized at location A.
--- OUTSIDE RECORDS SUMMARY | 2024-05-26 10:14 | XMS_ITS | Encounter Summary ---
Author Organization [facility] Address [address] [place] [address] Phone Care Team Providers Care Starch Treating Assistant Name Role Phone Negro Olvera MD Primary Care Provider [phone] Adam Leigh MD Unavailable [phone] Reymundo Huang MD Unavailable Reymundo Huang MD Unavailable [phone] Joseph Garcia DO Primary Care Provider [phone] Encounter Details Date Type Department Care Team (Latest Contact Info) Description 05/10/2023 Orders Only [facility] Scanning, Provider Social History Tobacco Use Types Packs/Day Years Used Date Smoking Tobacco: Never Smokeless Tobacco: Never Comments Unknown Sex and Gender Information Value Date Recorded Sex Assigned at Not on file Legal Sex Female 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 Gender Identity Female 07/30/2021 3:18 PM CDT [...] on filedocumented in this encounter Care Teams Starch Treating Assistant Relationship Specialty Start Date End Date Negro Olvera MD [address] [place] [address] PCP - General Internal Medicine 08/13/17 02/03/24 Joseph Garcia DO [address] [place] [address] PCP - General Internal Medicine 02/04/24 Adam Leigh MD [address] [facility] DIV IM PULMONARY AND CCM, [address] [place] [address] Referring Physician Pulmonary Disease 04/02/23 Reymundo Huang MD [address] [place] [address] Referring Physician Plastic Surgery 09/28/23 09/28/23 Reymundo Huang MD [address] [place] [address] [place] [address] Referring Physician Plastic Surgery 09/28/23 documented as of this encounter
--- OUTSIDE RECORDS SUMMARY | 2024-05-26 10:15 | XMS_ITS | Clinical Summary ---
Author Organization [facility] Address [address] [place] [address] Care Team Providers Care Die Maker Trim Name Role Phone Adam Leigh MD Unavailable [phone] Reymundo Huang MD Unavailable [phone] Joseph Garcia DO Primary Care Provider [phone] Allergies No known active allergies Medications lisinopril-hydro [...] on file Legal Sex Female 2:17 PM GAME AND FISH PROTECTOR Gender Identity Female 07/30/2021 3:18 PM CDT Sexual Orientation Not on file Obstetrics History Last Filed Vital Signs Vital Sign Reading Time Taken Comments Blood Pressure 149/93 02/04/2024 2:50 PM GAME AND FISH PROTECTOR Pulse 83 02/04/2024 2:50 PM GAME AND FISH PROTECTOR Temperature 36.3 C (97.4 F) 02/04/2024 2:50 PM GAME AND FISH PROTECTOR Respiratory Rate 18 02/04/2024 2:50 PM GAME AND FISH PROTECTOR Oxygen Saturation 98% 02/04/2024 2:50 PM GAME AND FISH PROTECTOR Inhaled Oxygen Concentration - - Weight 65.3 kg (144 lb) 02/04/2024 2:50 PM GAME AND FISH PROTECTOR Height 162.6 cm (5' 4 ) 02/04/2024 2:50 PM GAME AND FISH PROTECTOR Body Mass Index 24.72 02/04/2024 2:50 PM GAME AND FISH PROTECTOR Plan of Treatment Health Maintenance Due Date [...] Breast Cancer Screening-Mammogram 09/09/2024 024, 09/10/2023 Insurance [facility] PPO AETNA MEDICARE AETNA MEDICARE Care Teams Die Maker Trim Relationship Specialty Start Date End Date Joseph Garcia DO [address] [place] [address] PCP - General Internal Medicine 02/04/24 Adam Leigh MD [address] [facility] DIV IM PULMONARY AND CCM, [address] [place] [address] Referring Physician Pulmonary Disease 04/02/23 Reymundo Huang MD [address] [place] [address] Referring Physician Plastic Surgery 09/28/23
--- OUTSIDE RECORDS SUMMARY | 2024-05-26 10:15 | XMS_ITS | Encounter Summary ---
Author Organization [facility] Address [address] [place] [address] Phone Care Team Providers Care Log Handling Equipment Operator Name Role Phone Negro Olvera MD Primary Care Provider [phone] Adam Leigh MD Unavailable [phone] Reymundo Huang MD Unavailable [phone] Reymundo Huang MD Unavailable [phone] Joseph Garcia DO Primary Care Provider [phone] Encounter Details Date Type Department Care Team (Latest Contact Info) Description 06/16/2022 Orders Only [facility]UL[facility]ARY Scanning, Provider Social History Tobacco Use Types Packs/Day Years Used Date Smoking Tobacco: Never Smokeless Tobacco: Never Comments Unknown Sex and Gender Information Value Date Recorded Sex Assigned at Not on file 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 Gender Identity Female 07/30/2021 3:18 PM CDT [...] on filedocumented in this encounter Care Teams Log Handling Equipment Operator Relationship Specialty Start Date End Date Negro Olvera MD [address] [place] [address] PCP - General Internal Medicine 08/13/17 02/03/24 Joseph Garcia DO [address] [place] [address] PCP - General Internal Medicine 02/04/24 Adam Leigh MD [address] [place] IM PULMONARY AND CCM, [address] [place] [address] Referring Physician Pulmonary Disease 04/02/23 Reymundo Huang MD [address] [place] [address] Referring Physician Plastic Surgery 09/28/23 09/28/23 Reymundo Huang MD [address] [place] [address] Referring Physician Plastic Surgery 09/28/23 documented as of this encounter
--- OUTSIDE RECORDS SUMMARY | 2024-05-26 10:15 | XMS_ITS | Encounter Summary ---
Author Organization [facility] Address [address] [place] [address] Phone Care Team Providers Care Cessation Systems Outreach Specialist Name Role Phone Negro Olvera MD Primary Care Provider [phone] Adam Leigh MD Unavailable [phone] Reymundo Huang MD Unavailable Reymundo Huang MD Unavailable [phone] Joseph Garcia DO Primary Care Provider [phone] Encounter Details Date Type Department Care Team (Latest Contact Info) Description 06/25/2022 Orders Only [facility] PULMONARY Scanning, Provider Social History Tobacco Use Types Packs/Day Years Used Date Smoking Tobacco: Never Smokeless Tobacco: Never Comments Unknown Sex and Gender Information Value Date Recorded Sex Assigned at Not on file 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 Gender Identity Female 07/30/2021 3:18 PM CDT [...] on filedocumented in this encounter Care Teams Cessation Systems Outreach Specialist Relationship Specialty Start Date End Date Negro Olvera MD [address] [place] [address] PCP - General Internal Medicine 08/13/17 02/03/24 Joseph Garcia DO [address] [place] [address] PCP - General Internal Medicine 02/04/24 Adam Leigh MD [address] [facility] DIV IM PULMONARY AND CCM, [address] [place] [address] Referring Physician Pulmonary Disease 04/02/23 Reymundo Huang MD [address] [place] [address] Referring Physician Plastic Surgery 09/28/23 09/28/23 Reymundo Huang MD [address] [place] [address] Referring Physician Plastic Surgery 09/28/23 documented as of this encounter
--- OUTSIDE RECORDS SUMMARY | 2024-05-26 10:15 | XMS_ITS | Referral Summary ---
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 Gender Identity Female 07/30/2021 3:18 PM CDT Sexual Orientation Not on file Last Filed Vital Signs Vital Sign Reading Time Taken Comments Blood Pressure 149/93 02/04/2024 2:50 PM STONE SPLITTER Pulse 83 02/04/2024 2:50 PM STONE SPLITTER Temperature 36.3 C (97.4 F) 02/04/2024 2:50 PM STONE SPLITTER Respiratory Rate 18 02/04/2024 2:50 PM STONE SPLITTER Oxygen Saturation 98% 02/04/2024 2:50 PM STONE SPLITTER Inhaled Oxygen Concentration - - Weight 65.3 kg (144 lb) 02/04/2024 2:50 PM STONE SPLITTER Height 162.6 cm (5' 4 ) 02/04/2024 2:50 PM STONE SPLITTER Body Mass Index 24.72 02/04/2024 2:50 PM STONE SPLITTER Plan of Treatment Not on file Insurance [facility] PPO TNA MEDICARE AETNA MEDICARE Care Teams Back Shoe Operator Relationship Specialty Start Date End Date Joseph Garcia DO [address] [place] [address] PCP - General Internal Medicine 02/04/24 Adam Leigh MD [address] [facility] IM PULMONARY AND CCM, [address] [place] [address] Referring Physician Pulmonary Disease 04/02/23 Reymundo Huang MD [address] [place] [address] Referring Physician Plastic Surgery 09/28/23
--- OUTSIDE RECORDS SUMMARY | 2024-05-26 10:15 | XMS_ITS | Clinical Summary ---
Author Organization [facility] Address [address] [place] [address] Care Team Providers Care Outside Maintenance Worker Name Role Phone Unavailable Primary Care Provider [...] Recently Relevant to Health Maintenance Insurance AETNA [facility]
--- NOTE | 2024-05-26 11:10 | REHSTMBS ---
Assessment and note entered by Dorothy Carolina, CHEMICAL EDUCATOR Modified Barium Swallow Evaluation Feeding Type Recommended Oral Food Consistency Regular, Level 7 Liquid Consistency Thin (0) ST Clinical Summary The above pleasant and cooperative pt was seen for an outpatient modified barium swallow. She was alert & oriented, and able to follow commands. She is currently on a regular diet and reports a 6 -8 month difficulty in that it occasionally feels like solids get caught in her throat; pt denied choking. Oral mucosa is normal; natural dentition is in good condition; Informal oral peripheral exam revealed lingual and labial structures to be normal. She was able to dry swallow on command and exhibited clear vocal quality. The patient was seated for a lateral view and presented with 5cc of thin liquid barium via spoon , pudding consistency barium via a spoon, cracker coated with barium pudding via spoon, and uncontrolled thin liquid barium. This was presented via a cup & straw. Oral preparatory and oral phase symptoms: none. Pharyngeal phase symptoms: none; Esophageal stage symptoms: none. Overall, no aspiration or residue occurred. Impressions: Normal swallow Ability No further ST is warranted at this time.
== END 2024-05-26 09:38 | disposition home or self-care (01) ==
PROVIDERS: PCP Internal Medicine; Visit Provider Internal Medicine
DX: R13.10 Dysphagia, unspecified (principal)
CPT/HCPCS: 92611

== ENCOUNTER 2024-10-25 07:00 | Outpatient (CLI) | payer MEDICARE, SELFPAY ==
--- NOTE | ~2024-10-25 | XR_ITS ---
XR knee RT 3V 10/25/2024 07:21 INDICATION: Right knee pain PROCEDURE: 3 views right knee COMPARISON: No prior studies for comparison. FINDINGS: Fracture, dislocation or subluxation is not identified. The soft tissues appear within normal limits. No foreign bodies are identified. IMPRESSION: 1: NO ACUTE BONE OR JOINT ABNORMALITY IDENTIFIED. Reviewed, dictated and finalized at location O.
--- OUTSIDE RECORDS SUMMARY | 2024-10-25 07:09 | XMS_ITS | Clinical Summary ---
Author Organization [facility] Address [address] [place] [address] Care Team Providers Care Stitcher Tape Controlled Machine Name Role Phone Adam Leigh MD Unavailable [phone] Reymundo Huang MD Unavailable [phone] Joseph Garcia DO Primary Care Provider [phone] Allergies No known active allergies Medications lisinopril-hydroCH LOROthiazide (PRINZIDE,ZESTORET IC) 20-12.5 mg per tabletIndications: hypertension 07/15/2017 Active Active Problems Problem Noted Date Diagnosed Date Pulmonary fibrosis, unspecified 09/04/2024 Sarcoidosis 04/02/2023 Shortness of breath 02/02/2023 Chest x-ray abnormality Encounters Date Type Department Care Team Description 09/05/2024 1:30 PM CDT Office Visit [facility] Medicine Pulmonary [address] [facility] [facility] [address] [place] [address] [place] [address] Mary Tan NP Pulmonary fibrosis, unspecified (HCC) (Primary Dx); Exercises 5 to 6 times per week; Immunization counseling 09/05/2024 12:45 PM CDT - 09/05/2024 11:59 PM CDT Hospital Encounter [facility] Medicine Pulmonary [address] [facility] [address] [place] [address] Sarcoidosis Discharge Disposition: Discharge to home or self care 09/05/2024 12:41 PM CDT - 09/05/2024 11:59 PM CDT Hospital Encounter [facility] [address] [place] [address] Sarcoidosis Discharge Disposition: Discharge to home or self care from Last 3 Months Family History Medical History Relation Name Comments Diabetes Father Cancer Mother Relation Name Status Comments Father Mother Social History Tobacco Use Types Packs/Day Years Used Date Smoking Tobacco: Never Smokeless Tobacco: Never Comments Unknown Sex and Gender Information Value Date Recorded Sex Assigned at Not on file 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 Gender Identity Female 07/30/2021 3:18 PM CDT Sexual Orientation Not on file Obstetrics History Last Filed Vital Signs Vital Sign Reading Time Taken Comments Blood Pressure 143/96 09/05/2024 1:15 PM CDT Pulse 82 09/05/2024 1:15 PM CDT Temperature 36.6 C (97.9 F) 09/05/2024 1:15 PM CDT Respiratory Rate 18 09/05/2024 1:15 PM CDT Oxygen Saturation 98% 09/05/2024 1:15 PM CDT Inhaled Oxygen Concentration - - Weight 67.1 kg (148 lb) 09/05/2024 1:15 PM CDT Height 162.6 cm (5' 4) 09/05/2024 1:15 PM CDT Body Mass Index 25.4 09/05/2024 1:15 PM CDT Plan of Treatment Health Maintenance Due Date Last Done Comments Colon Cancer Screening-Colonoscopy 1954 Depression Screening 1954 Fall Risk Assessment 1954 Hepatitis C Screening 1954 Osteoporosis Screening-Bone Density Scan 1954 DTaP/Tdap/Td Vaccine (1 - Tdap) 1965 Hepatitis B Screening 1972 Pneumococcal vaccine 65+ (1 of 2 - PCV) 1973 Zoster Vaccine (1 of 2) 2004 Well Visit 65+ 06/06/2019 Breast Cancer Screening-Mammogram 09/09/2024 024, 09/10/2023 Influenza Vaccine (#1) 2024 Procedures Procedure Name Priority Date/Time Associated Diagnosis Comments PULMONARY FUNCTION TEST (PFT) Routine 09/05/2024 1:03 PM CDT Sarcoidosis XR CHEST PA LATERAL 2 VIEWS Schedule Routine, Read Routine (OP Routine) 09/05/2024 12:48 PM CDT Sarcoidosis from Last 3 Months Results * Pulmonary Function Test - (09/05/2024 1:03 PM CDT) FVC PRE 1.95 L [facility] FVC %PRE PRED 71 % [facility] FEV1 PRE 1.43 L [facility] FEV1 %PRE PRED 66 % [facility] FEV1/FVC PRE 73.2 % [facility] Anatomical Region Laterality Modality PFT 09/05/2024 12:5 5 PM CDT Narrative 09/05/2024 2:42 PM CDT PFT performed at:->[facility] Adult PFT Lab- [facility] Procedure:->Spirometry Pulmonary Function Test Interpretation SPIROMETRY: There is a decrease in expiratory airflow at middle lung volumes. The FEV1 to FVC ratio is normal. The FEV1 and FVC are reduced in a pattern suggestive of a restrictive abnormality. The inspiratory loop is normal. Impression: There is a mild restrictive ventilatory defect. However, measurement of lung volumes is suggested to confirm this if clinically indicated. Compared with most recent study, there has been no significant interval change. The attending pulmonary physician certifies a physician presence in the [facility] during the administration of aerosolized bronchodilator. The attending pulmonary physician certifies that he/she has reviewed and interpreted the graphic and numerical data of this pulmonary function study and agrees with the written final report. The lower limit of normal for PaO2 and %HbO2 is age dependent. However, the [facility] Pulmonary Function Laboratory defines hypoxemia as a PaO2 <56 mm Hg or a %HbO2 <89%. Starting on March of 2024 the [facility] Pulmonary Function Laboratory utilizes race neutral GLI Global normative equations. Adam Leigh MD PFT ORDERABLES Final Result * XR Chest Pa Lateral 2 Views (09/05/2024 12:48 PM CDT) Anatomical Region Laterality Modality Body, Chest N/A Computed Radiogr aphy 09/05/2024 12:5 1 PM CDT Impressions 09/05/2024 12:51 PM CDT Comparison to 04/02/2023. Again seen is upper lung predominant bronchiectasis and architectural distortion with nodular pulmonary opacities in keeping with patient's known sarcoidosis. These findings appear similar to prior. No definite new focal pulmonary opacity. No pleural effusion. No pneumothorax. The heart and mediastinum are unchanged. Electronically signed by: Reymundo Morales M.D. Narrative 09/05/2024 12:51 PM CDT EXAMINATION: 2 view chest radiograph Procedure Note Reymundo Morales MD - 09/05/2024 EXAMINATION: 2 view chest radiograph IMPRESSION: Comparison to 04/02/2023. Again seen is upper lung predominant bronchiectasis and architectural distortion with nodular pulmonary opacities in keeping with patient's known sarcoidosis. These findings appear similar to prior. No definite new focal pulmonary opacity. No pleural effusion. No pneumothorax. The heart and mediastinum are unchanged. Electronically signed by: Reymundo Morales M.D. Adam Leigh MD IMG XR PROCEDURES Final Resu lt from Last 3 Months Insurance [facility] PPO AETNA MEDICARE AETNA MEDICARE Care Teams Stitcher Tape Controlled Machine Relationship Specialty Start Date End Date Joseph Garcia DO [address] [place] [address] PCP - General Internal Medicine 02/04/24 Adam Leigh MD [address] [facility] DIV IM PULMONARY AND CCM, [address] [place] [address] Referring Physician Pulmonary Disease 04/02/23 Reymundo Huang MD [address] [place] [address] Referring Physician Plastic Surgery 09/28/23
--- OUTSIDE RECORDS SUMMARY | 2024-10-25 07:09 | XMS_ITS | Encounter Summary ---
Author Organization [facility] Address [address] [place] [address] Phone Care Team Providers Care Loader Operator/Ground Leader Name Role Phone Negro Olvera MD Primary Care Provider [phone] Adam Leigh MD Unavailable [phone] Reymundo Huang MD Unavailable Reymundo Huang MD Unavailable [phone] Joseph Garcia DO Primary Care Provider [phone] Encounter Details Date Type Department Care Team (Latest Contact Info) Description 06/25/2022 Orders Only [facility]UL[facility]ARY Scanning, Provider Social History Tobacco Use Types Packs/Day Years Used Date Smoking Tobacco: Never Smokeless Tobacco: Never Comments Unknown Sex and Gender Information Value Date Recorded Sex Assigned at Not on file 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 DIV IM PULMONARY AND CCM, [address] [place] [address] Referring Physician Pulmonary Disease 04/02/23 Reymundo Huang MD [address] [place] [address] Referring Physician Plastic Surgery 09/28/23 09/28/23 Reymundo Huang MD [address] [place] [address] Referring Physician Plastic Surgery 09/28/23 documented as of this encounter
--- OUTSIDE RECORDS SUMMARY | 2024-10-25 07:09 | XMS_ITS | Encounter Summary ---
Author Organization [facility] Address [address] [place] [address] Phone Care Team Providers Care Acls Specialist Name Role Phone Negro Olvera MD Primary Care Provider [phone] Adam Leigh MD Unavailable [phone] Reymundo Huang MD Unavailable [phone] Reymundo Huang MD Unavailable [phone] Joseph Garcia DO Primary Care Provider [phone] Encounter Details Date Type Department Care Team (Latest Contact Info) Description 06/16/2022 Orders Only [facility] PULMONARY Scanning, Provider Social History Tobacco Use Types Packs/Day Years Used Date Smoking Tobacco: Never Smokeless Tobacco: Never Comments Unknown Sex and Gender Information Value Date Recorded Sex Assigned at Not on file 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 Gender Identity Female 07/30/2021 3:18 PM CDT [...] on filedocumented in this encounter Care Teams Acls Specialist Relationship Specialty Start Date End Date Negro Olvera MD [address] [place] [address] PCP - General Internal Medicine 08/13/17 02/03/24 Joseph Garcia DO [address] [place] [address] PCP - General Internal Medicine 02/04/24 Adma Leigh MD [address] [facility] DIV IM PULMONARY AND CCM, [address] [place] [address] Referring Physician Pulmonary Disease 04/02/23 Reymundo Huang MD [address] [place] [address] Referring Physician Plastic Surgery 09/28/23 09/28/23 Reymundo Huang MD [address] [place] [address] Referring Physician Plastic Surgery 09/28/23 documented as of this encounter
--- OUTSIDE RECORDS SUMMARY | 2024-10-25 07:09 | XMS_ITS | Clinical Summary ---
Author Organization [facility] Address [address] [place] [address] Care Team Providers Care Parts Room Assistant Name Role Phone Unavailable Primary Care Provider Unavailabl e Encounters Date Type Department Care Team Description 08/15/2024 External Device Data STL ABSTRACTION Provider, Abstract 07/25/2024 External Device Data ST[facility] ABSTRACTION Provider, Abstract [...] Health Maintenance Due Date Last Done Comments DTAP/TDAP/TD VACCINES (1 - Tdap) 1973 COLORECTAL SCREENING 06/06/1999 Colorectal Cancer Screening 06/06/1999 FIT-DNA Q 3 years 06/06/1999 FIT/FOBT Q 1 year 06/06/1999 Flex Sig/CT Colonography Q 5 years 06/06/1999 PNEUMOCOCCAL VACCINE 50+ YEARS (1 of 1 - PCV) 06/06/19 05 ZOSTER VACCINE (1 of 2) 2004 OSTEOPOROSIS SCREENING 06/06/2019 BREAST CANCER SCREENING 09/09/2024 09/10/2023 INFLUENZA VACCINE (#1) 2024 RSV VACCINE (60+ or ) (1 - [...] Recently Relevant to Health Maintenance Insurance AETNA [facility]
--- OUTSIDE RECORDS SUMMARY | 2024-10-25 07:09 | XMS_ITS | Encounter Summary ---
Author Organization [facility] Address [address] [place] [address] Phone Care Team Providers Care Stain Sprayer Name Role Phone Negro Olvera MD Primary Care Provider [phone] Adam Leigh MD Unavailable [phone] Reymundo Huang MD Unavailable Reymundo Huang MD Unavailable [phone] Joseph Garcia DO Primary Care Provider [phone] Encounter Details Date Type Department Care Team (Latest Contact Info) Description 05/10/2023 Orders Only [facility] IM PULMONARY Scanning, Provider Social History Tobacco Use Types Packs/Day Years Used Date Smoking Tobacco: Never Smokeless Tobacco: Never Comments Unknown Sex and Gender Information Value Date Recorded Sex Assigned at Not on file 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 Gender Identity Female 07/30/2021 3:18 PM CDT [...] on filedocumented in this encounter Care Teams Stain Sprayer Relationship Specialty Start Date End Date Negro Olvera MD [address] [place] [address] PCP - General Internal Medicine 08/13/17 02/03/24 Joseph Garcia DO [address] [place] [address] PCP - General Internal Medicine 02/04/24 Adam Leigh MD [address] [facility] DIV IM PULMONARY AND CCM, [address] [place] [address] Referring Physician Pulmonary Disease 04/02/23 Reymundo Huang MD [address] [place] [address] Referring Physician Plastic Surgery 09/28/23 09/28/23 Reymundo Huang MD [address] [facility] [address] [place] [address] Referring Physician Plastic Surgery 09/28/23 documented as of this encounter
== END 2024-10-25 07:01 | disposition home or self-care (01) ==
PROVIDERS: PCP Internal Medicine; Visit Provider Nurse Practitioner
DX: M25.561 Pain in right knee (principal)
CPT/HCPCS: 73562